=== PATIENT | female | born 1995 | race American Indian/Alaskan Native ===

== ENCOUNTER 2018-05-27 14:09 | Outpatient (CLI) | payer OTHER ==
[2018-05-27] MEDS ORDERED: OBSTETRIX EC C1 EACH PO (14:56)
== END 2018-05-28 10:18 | disposition home or self-care (01) ==
LOC: OBS/DEL 14:09
DX: O26.893 Other specified pregnancy related conditions, third trimester (principal); M62.830 Muscle spasm of back; K29.70 Gastritis, unspecified, without bleeding; O23.43 Unspecified infection of urinary tract in pregnancy, third trimester; Z34.03 Encounter for supervision of normal first pregnancy, third trimester

== ENCOUNTER 2018-07-12 05:31 | Inpatient (IN) | payer OTHER ==
[~2018-07-12] VITALS: Ht 157.5 cm; Wt 3.2 kg
[~2018-07-12 05:31] MED LIST: OBSTETRIX EC C1 EACH PO
== END 2018-07-15 15:34 | disposition home or self-care (01) | DRG 766 ==
LOC: LDR 05:31 → OB/GYN 05:31 → LDR 08:32 → OB/GYN 22:30
PROVIDERS: Obstetrics & Gynecology
PROC: 4A1HXCZ Monitoring of Products of Conception, Cardiac Rate, External Approach (ICD-10-PCS; 2018-07-12)
PROC: 10D00Z1 Extraction of Products of Conception, Low, Open Approach (ICD-10-PCS; principal; 2018-07-12 18:00)
DX: O62.0 Primary inadequate contractions (principal); Z37.0 Single live birth; Z3A.39 39 weeks gestation of pregnancy

== ENCOUNTER 2025-02-18 08:11 | Emergency (ER) | payer OTHER ==
[~2025-02-18] VITALS: Ht 157.5 cm; Wt 68.0 kg
[2025-02-18 09:12] LABS: HEMOGLOBIN 10.1 g/dL (12.0-15.00); MEAN CELL VOLUME 82.2 fL (80.00-100.00); MEAN CORPUSCULAR HEMOGLOBIN 26.7 pg (27.00-32.0); MEAN CORPUSCULAR HGB CONC 32.5 g/dl (32.0-36.0); PLATELET COUNT 224 K/uL (150-450); RED BLOOD COUNT 3.77 M/uL (4.00-6.00); RED CELL DISTRIBUTION WIDTH 14.4 % (11.5-14.5)
[2025-02-18] MEDS ORDERED: TRAMADOL HCL 50 MG TABLET PO ONE (09:15)
[2025-02-18 09:50] LABS: INR 1.06; PARTIAL THROMBOPLASTIN TIME 24.1 SECONDS (22.0-34.0); PROTHROMBIN TIME 11.5 SECONDS (9.0-11.5)
[2025-02-18 10:05] LABS: ALBUMIN 3.3 gm/dL (3.4-5.0); BILIRUBIN TOTAL 0.21 mg/dL (0.3-1.2); CALCIUM 8.7 mg/dL (8.5-10.1); CREATININE SERUM 0.48 mg/dL (0.55-1.02); GLOBULINA 3.5 G/DL (2.4-3.5); POTASSIUM 4.12 mEq/L (3.5-5.1); TOTAL PROTEIN 6.8 gm/dL (6.4-8.2)
[2025-02-18] MEDS ORDERED: MISOPROSTOL 100 MCG TABLET PO ONE (13:15)
[2025-02-18] MEDS ORDERED: MISOPROSTOL 100 MCG TABLET ONE (13:42)
== END 2025-02-18 21:03 | disposition home or self-care (01) ==
LOC: ER 08:12
PROVIDERS: General Practice
DX: O03.9 Complete or unspecified spontaneous abortion without complication (principal)